=== PATIENT | male | born 1970 | race Caucasian/White ===

== ENCOUNTER 2018-07-14 05:32 | Day surgery (SDC) | payer BC ==
[2018-07-13 15:35] VITALS: BMI 27.2
[2018-07-14 06:15] LABS: #Eosinphils 0.3 thou/uL (0.0-0.7); #Lymphocytes 1.3 thou/uL (1.20-3.40); #Monocytes 0.5 thou/uL (0.11-0.59); #Neutrophils 5.4 thou/uL (1.40-6.50); %Basophils 0.5 % (0.0-1.0); %Eosinophils 3.4 % (0.0-10.0); %Lymphocytes 16.9 % (21.0-51.0); %Monocytes 6.9 % (0.0-10.0); %Neutrophils 72.4 % (42.0-75.0); Hemoglobin 14.8 g/dL (14.0-18.0); Mean Corpuscular HGB CONC 36.8 g/dL (32.0-36.0); Mean Corpuscular Hemoglobin 33.8 pg (27.0-31.0); Mean Corpuscular Volume 91.8 fL (78.0-98.0); Mean Platelet Volume 6.1 fL (7.4-10.4); Platelet Count 296 thou/uL (130-400); RBC Distribution Width 11.5 % (11.5-14.5); Red Blood Cell (RBC) Count 4.38 mill/uL (4.70-6.10); White Blood Cell (WBC) Count 7.4 thou/uL (4.8-10.8)
[2018-07-14 06:20] LABS: Bilirubin Negative (Negative); Blood, Urine Negative (Negative); Clarity CLEAR (Clear); Glucose, Urine (Dipstick) Negative (Negative); Leukocyte Negative (Negative); Nitrite Negative (Negative); Protein, Urine (Dipstick) Negative (Neg-Trace); Specific Gravity, Urine 1.022 (1.002-1.036); Urobilinogen 0.2 mg/dL (0.2-1.0)
[2018-07-14 06:28] LABS: Anion Gap 13 mmol/L (10-20); BUN (Urea Nitrogen) 15 mg/dL (8.9-20.6); Calc. Creatinine Clearance 88 mL/min (70-130); Carbon Dioxide 23 mmol/L (22-29); Chloride 104 mmol/L (98-107); Estimated GFR-MDRD 62; Glucose 150 mg/dL (70-105); Potassium 3.6 mmol/L (3.5-5.1); Sodium 136 mmol/L (136-145)
[2018-07-14] MEDS ORDERED: CEFAZOLIN/Water 2 GM/20 ML SYRINGE ONE (06:29)
[2018-07-14] MEDS ORDERED: Bupivacaine PF 0.5% 30 ML VIAL ONE (06:36)
[2018-07-14] MEDS ORDERED: Bacitracin Zinc Ointment 30 gm TUBE ONE (06:36)
[2018-07-14] MEDS ORDERED: Betamet Acet/Betamet Na Ph 30 MG/5 ML VIAL ONE (06:36)
[2018-07-14] MEDS ORDERED: Fentanyl 100 MCG/2 ML VIAL ONE (06:55)
[2018-07-14] MEDS ORDERED: Midazolam HCl 2 mg/2 ml Vial ONE (06:55)
[2018-07-14] MEDS ORDERED: Ketorolac Tromethamine 30 MG/ML VIAL ONE (09:24)
--- NOTE | 2018-07-14 10:25 | OP ---
DATE OF PROCEDURE: 07/14/2018 PREOPERATIVE DIAGNOSES: Right severe Dupuytren's contracture, small finger MP joint, -45, PIP joint -30, ring finger MP joint -20 degrees with a Y-shaped cord stretching from the base of the PIP joint to the transverse carpal ligament. PROCEDURE PERFORMED: 1. Neuroplasty right small finger digital nerves, radial and ulnar. 2. Neuroplasty right ring finger digital nerves, radial and ulnar. 3. Subtotal palmar fasciotomy with fasciectomy with Dupuytren's cord release. SURGEON: Dr. Cole Laguna TOURNIQUET TIME: 61 minutes. ESTIMATED BLOOD LOSS: Less than or equal to 10 mL. INJECTABLE: 30 mL Marcaine 0.5% without epinephrine and drip technique, 5 mL of Celestone along the digital nerve path. INDICATIONS: The patient with contractures listed as above, very thick cord, and marked evidence of a loss of motion that has progressed. DESCRIPTION OF PROCEDURE: After successful general anesthesia, the limb was prepped and draped. Abdirizak eout was done appropriately. We gave the patient 15 mL of 0.5% Marcaine block along the very thick c ord which was "Y-shaped". We began with the zigzag incision using Apolinar lines enough to reach the cord of both fingers and not violate any tissue planes. We began proximally, dissected the cord over the entire incision. We was found the digital nerves, just 2 cm distal to the origin of the cord an d then performed a formal neuroplasty of all 4 digital nerves out to the level of where they passed t he mass and then let them be free of the mass. At that point, we began distally to remove the mass w here the small finger inserted on the base of the A3 eugenia and on the ring finger and inserted aroun d on both sides of the base of the A3 eugenia. We then slowly dissected proximally, preserving the ar alisa and nerves, from the proximal neurovascular bundle and then made an incision with a Be aver blade. We released the tourniquet. We then had excellent circulation. We knew we had to preserve the nerve s, but simply a neuroplasty, we used a drip technique, a 5 mL Celestone divided equally between all t he digital nerves in the field of the dissection. We then had excellent hemostasis, closed the wound s to include where we had 2 areas of skin dimpling and had resected the dimples without undue tension with 4-0 nylon simple pattern. Remaining 15 mL was injected. The patient left the operating room w ithout evidence of anesthetic or operative complication.
--- NOTE | 2018-07-14 12:16 | EKG ---
Test Reason : PREOP Blood Pressure : / mmHG Vent. Rate : 075 BPM Atrial Rate : 075 BPM P-R Int : 168 ms QRS Dur : 086 ms QT Int : 370 ms P-R-T Axes : 028 019 009 degrees QTc Int : 413 ms Normal sinus rhythm Normal ECG No previous ECGs available Confirmed by CARLOS MONTANA ([id number]) on 07/14/2018 12:16:28 PM Referred By: MANFRED Confirmed By:CARLOS MONTANA
== END 2018-07-14 11:40 | disposition home or self-care (01) ==
LOC: SDC 05:32
PROVIDERS: ATTEND Orthopaedic Surgery Hand Surgery
PROC: 01N60ZZ Release Radial Nerve, Open Approach (ICD-10-PCS; principal; 2018-07-14)
PROC: 0JNJ0ZZ Release Right Hand Subcutaneous Tissue and Fascia, Open Approach (ICD-10-PCS; principal; 2018-07-14)
PROC: 01N40ZZ Release Ulnar Nerve, Open Approach (ICD-10-PCS; principal; 2018-07-14)
DX: M72.0 Palmar fascial fibromatosis [Dupuytren] (principal); I10 Essential (primary) hypertension; G47.00 Insomnia, unspecified; F41.9 Anxiety disorder, unspecified; Z79.899 Other long term (current) drug therapy; Z98.890 Other specified postprocedural states
CPT/HCPCS: 36415; 80048; 81003; 85025; 88304; 93005; 93010; 96372; J0702; J1885; J2250; J3010; S0020